=== PATIENT | female | born 1950 | race American Indian/Alaskan Native ===

== ENCOUNTER 2016-07-20 11:20 | Emergency (ER) | payer BC ==
[2016-07-20] MEDS ORDERED: NACL 0.9% 1000 ML 1,000 ML IV ONE (12:48)
[2016-07-20 14:01] LABS: Hematocrit 35.6 % (30.3-42.9); Hemoglobin 11.6 gm/dl (10.1-14.3); Mean Corpuscular HGB Conc 33 % (30-34); Mean Corpuscular Volume 75 fl (79-97); Platelet Count 264 K/mm3 (140-440); Red Blood Count 4.73 M/mm3 (3.65-5.03); Red Cell Distribution Width 14.9 % (13.2-15.2); White Blood Count 6.9 K/mm3 (4.5-11.0)
[2016-07-20 14:05] LABS: Anion Gap 20 mmol/L; Blood Urea Nitrogen 23 mg/dL (7-17); Calcium 9.8 mg/dL (8.4-10.2); Carbon Dioxide 26 mmol/L (22-30); Glucose 274 mg/dL (65-100); Mean Corpuscular Hemoglobin 25 pg (28-32); Potassium 3.6 mmol/L (3.6-5.0); Sodium 140 mmol/L (137-145)
[2016-07-20 15:07] LABS: Bilirubin,Urine NEG (Negative); Blood,Urine NEG (Negative); Ketones,Urine NEG (Negative); Leukocyte Esterase,Urine NEG (Negative); Nitrite,Urine NEG (Negative); Protein,Urine <15 mg/dL mg/dL (Negative); Urobilinogen,Urine < 2.0 mg/dL (<2.0); WBC,Urine < 1.0 /HPF (0.0-6.0)
[2016-07-20] MEDS ORDERED: GLUCOPHAGE PO ONE (16:27)
[2016-07-20] MEDS ORDERED: NACL 0.9% 1000 ML 1,000 ML ONE (16:29)
--- NOTE | 2016-07-20 18:14 | Cat Scan Report ---
FINAL REPORT PROCEDURE: CT HEAD/BRAIN WO CON TECHNIQUE: Computerized tomography of the head was performed without contrast material. HISTORY: headache COMPARISON: No prior studies are available for comparison. FINDINGS: No CT evidence of intracranial mass, hemorrhage, acute territorial infarction, or hydrocephalus. Intracranial arteries are symmetric in density. The calvarium is intact. The visualized paranasal sinuses and mastoids are aerated. IMPRESSION: No CT evidence of acute abnormality
--- NOTE | 2016-07-20 18:34 | Emergency Department Report ---
HPI - General Chief Complaint: Hyperglycemia Time Seen by Provider: 07/20/16 12:47 - HPI HPI: 65-year-old female past medical history hypertension diabetes hyperlipidemia presents with complaint of elevated blood sugar. Blood sugar in 400s patient states she felt slightly dizzy which is why she came to the ER has not been taking her metformin for approximately 5 days. States that her insurance stopped covering her saxaglitptin/metformin. Also ran out of Scali. Patient denies any chest pain denies any significant shortness of breath no nausea no vomiting. States she felt slightly dizzy denies any blurry vision states she had very mild headache. Patient is awake alert and oriented 3 not in acute distress, accompanied by daughter. [place] 2 [place] . contacted her primary doctor for follow-up. ED Past Medical Hx - Past Medical History Previous Medical History?: Yes Hx Hypertension: Yes Hx Congestive Heart Failure: Yes Hx Diabetes: Yes Additional medical history: high cholesterol. anemia. low vit d - Surgical History Past Surgical History?: Yes Hx Appendectomy: Yes Additional Surgical History: sarath knee surgery. retro uterus reversal. C1, C2 fusion-took bone from right hip per pt. Left sided milk duct removal - Social History Smoking Status: Never Smoker Substance Use Type: None - Medications Home Medications: Home Medications Medication Instructions Recorded Confirmed Last Taken Type Lansoprazole [Prevacid] 15 mg PO BID #30 cap 04/30/15 Unknown Rx Ondansetron [Zofran Odt] 4 mg PO Q6H PRN #7 tab.rapdis 04/30/15 Unknown Rx Meclizine [Antivert] 12.5 mg PO BID PRN #20 tablet 07/20/16 Unknown Rx Metformin HCl [Glucophage] 1,000 mg PO BID #60 tablet 07/20/16 Unknown Rx Sitagliptin Phosphate [Januvia] 100 mg PO QDAY #30 tablet 07/20/16 Unknown Rx ED Review of Systems ROS: Stated complaint: HIGH BLOOD SUGAR Other details as noted in HPI Constitutional: denies: chills, fever Eyes: denies: eye pain, eye discharge, vision change ENT: denies: ear pain, throat pain Respiratory: denies: cough, shortness of breath, wheezing Cardiovascular: denies: chest pain, palpitations Endocrine: no symptoms reported Gastrointestinal: denies: abdominal pain, nausea, diarrhea Genitourinary: denies: urgency, dysuria, discharge Musculoskeletal: denies: back pain, joint swelling, arthralgia Skin: denies: rash, lesions Neurological: denies: headache, weakness, paresthesias Psychiatric: denies: anxiety, depression Hematological/Lymphatic: denies: easy bleeding, easy bruising Physical Exam - Physical Exam Vital Signs: Vital Signs 07/20/16 11:52 Temperature 98.3 F Pulse Rate 88 Respiratory 18 Rate Blood Pressure 127/77 O2 Sat by Pulse 100 Oximetry General: General: Well appearing, well nourished, in no distress. Oriented x 3, normal mood and affect. Ambulating without difficulty. Skin: Good turgor, no rash, unusual bruising or prominent lesions Head: Normocephalic, atraumatic, no visible or palpable masses, depressions, or scaring. Eyes: Visual acuity intact, conjunctiva clear, sclera non-icteric, EOM intact, PERRLA Neck: Supple, without lesions, bruits, or adenopathy, thyroid non-enlarged and non-tender Heart: No cardiomegaly or thrills; regular rate and rhythm, no murmur or gallop Lungs: Clear to auscultation and percussion Abdomen: Bowel sounds normal, no tenderness, organomegaly, masses, or hernia Back: Spine normal without deformity or tenderness, no CVA tenderness Extremities: No amputations or deformities, cyanosis, edema or varicosities, peripheral pulses intact Musculoskeletal: Normal gait and station. No misalignment, asymmetry, crepitation, defects, tenderness, masses, effusions, decreased range of motion, instability, atrophy or abnormal strength or tone in the head, neck, spine, ribs , pelvis or extremities. Neurologic: CN 2-12 normal. Sensation to pain, touch, and proprioception normal. DTRs normal in upper and lower extremities. No pathologic reflexes. 5 out of 5 all extremities Psychiatric: Oriented X3, intact recent and remote memory, judgment and insight , normal mood ED Course Vital Signs 07/20/16 11:52 Temperature 98.3 F Pulse Rate 88 Respiratory 18 Rate Blood Pressure 127/77 O2 Sat by Pulse 100 Oximetry ED Medical Decision Making - Lab Data Result diagrams: 07/20/16 12:55 07/20/16 12:55 - Medical Decision Making A/P: Hyperglycemia, dizziness 1-EKG, troponin, CT, chest x-ray within normal limits 2-patient's hyperglycemia has improved 3-patient has follow-up with primary care doctor in 72 hours 4-refill patient's metformin and Januvia and advised her to adhere to her regimen Critical care attestation.: If time is entered above; I have spent that time in minutes in the direct care of this critically ill patient, excluding procedure time. ED Disposition Clinical Impression: Hyperglycemia Disposition: DISCHARGED TO HOME OR SELFCARE Is pt being admited?: No Does the pt Need Aspirin: No Condition: Stable Instructions: Dizziness (ED), Diabetic Hyperglycemia (ED) Prescriptions: Meclizine [Antivert] 12.5 mg PO BID PRN #20 tablet PRN Reason: Vertigo Metformin HCl [Glucophage] 1,000 mg PO BID #60 tablet Sitagliptin Phosphate [Januvia] 100 mg PO QDAY #30 tablet Referrals: CHERELLE MOSS [Other] - 3-5 Days Forms: Accompanied Note, Work/School Release Form(ED) Time of Disposition: 18:36
[2016-07-20 18:49] VITALS: BP 154/84
--- NOTE | 2016-07-21 08:13 | XRay Report ---
CHEST TWO VIEWS: 07/20/16 11:20:00 CLINICAL: Shortness of breath. COMPARISON: None FINDINGS: Normal heart and pulmonary vasculature. The lungs are normally expanded and clear except for a few tiny calcified granulomata. No airspace disease or pleural effusion.The bones and soft tissues are normal. IMPRESSION: Old granulomatous disease.No acute cardiopulmonary process.
--- NOTE | 2016-07-22 15:17 | Emergency Department Report ---
Entered by MARI MARQUEZ, acting as scribe for JUDY BOUCHER PA. Chief Complaint: Hyperglycemia Stated Complaint: HIGH BLOOD SUGAR Time Seen by Provider: 07/20/16 12:43 - HPI History of Present Illness: 65 y/o female presents c/o RATLIFF, light headedness and nausea associated with hyperglycemia that started 3 days ago. Medication includes Januvia 25mg. - ROS Review of Systems: as noted in HPI - Exam Vital Signs: Vital Signs 07/20/16 11:52 Temperature 98.3 F Pulse Rate 88 Respiratory 18 Rate Blood Pressure 127/77 O2 Sat by Pulse 100 Oximetry Physical Exam: General: 65-year-old female in no acute distress. Well-developed, well- nourished. CV: Regular rate and rhythm. No murmurs rubs or gallops. Lungs: Clear to auscultation bilaterally. Abdomen: No tenderness to palpation. No guarding or rebound tenderness. Normal bowel sounds. Mini Neuro: Alert and oriented 3. MSE screening note: Focused history and physical exam performed. Due to findings the following was ordered: ED Disposition for MSE Condition: Stable This documentation as recorded by the scribe,MRAI MARQUEZ,accurately reflects the service I personally performed and the decisions made by me,JUDY BOUCHER PA.
== END 2016-07-20 18:54 | disposition home or self-care (01) ==
LOC: ED 11:20
DX: E11.65 Type 2 diabetes mellitus with hyperglycemia (principal); I50.9 Heart failure, unspecified; I10 Essential (primary) hypertension; D64.9 Anemia, unspecified; E78.00 Pure hypercholesterolemia, unspecified
CPT/HCPCS: 36415; 70450; 71020; 80048; 81001; 82550; 82962; 84484; 85027; 87086; 93005; 93010; 96360; 99285; J7030